=== PATIENT | female | born 1960 | race Caucasian/White ===

== ENCOUNTER → 2016-08-20 | Outpatient (CLI) | payer BC ==
--- NOTE | 2016-08-20 09:31 | RADIOLOGY REPORT (SQ) ---
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 Images reviewed with lung, soft tissue and bone windows. Reconstructed coronal and sagittal MPR images reviewed. All images stored on PACS. All CT scanners at this facility use dose modulation, iterative reconstruction, and/or weight based d osing when appropriate to reduce radiation dose to as low as reasonably achievable (ALARA). [facility]: Dose Right [facility]: CareDose [facility]: Dose Right [facility]: Teradose 4D [facility]: [employer] CONTRAST TYPE AND DOSE: 80mL Isovue 370- low osmolar. RENAL FUNCTION: Creatinine 0.6 RADIATION DOSE: 7.49 mGy. LIMITATIONS: None. FINDINGS: LUNGS AND PLEURA: Old right thoracotomy. Bandlike scarring in the right lower lobe down t o the right posterior costophrenic sulcus. This is similar compared to previous exams. Lungs are otherwise unremarkable. No pleural effusion. No pneumothorax. No acute infiltrates. HILAR AND MEDIASTINAL STRUCTURES: No identified masses or abnormal nodes. HEART AND VASCULAR STRUCTURES: No aneurysm or dissection. No central pulmonary emboli. No pericardi al effusion. HARDWARE: None in the chest. UPPER ABDOMEN: No significant findings. Limited exam. THYROID AND OTHER SOFT TISSUES: No masses. No adenopathy. BONES: No significant finding. OTHER: No other significant finding. IMPRESSION: No change in right lower lobe bandlike scarring adjacent to lung parenchyma shane in t he right posterior costophrenic sulcus TECHNICAL DOCUMENTATION: JOB ID: [id number] Quality ID # [id number]: Final reports with documentation of one or more dose reduction techniques (e.g., Au tomated exposure control, adjustment of the mA and/or kV according to patient size, use of iterative reconstruction technique) 2010 [employer]- All Rights Reserved
== END ==
LOC: RAD 07:55
PROVIDERS: ATTEND Specialist
DX: D14.31 Benign neoplasm of right bronchus and lung (principal)
CPT/HCPCS: 71260; 82565

== ENCOUNTER → 2016-09-01 | Outpatient (CLI) | payer BC ==
--- NOTE | 2016-09-01 18:42 | RADIOLOGY REPORT (SQ) ---
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 TECHNIQUE: Dynamic and static maxwell-scale images acquired of the thyroid gland. Selected additional c olor/power Doppler images recorded. All images stored to PACS. LIMITATIONS: None. FINDINGS: RIGHT LOBE: Enlarged, 57 mm. Inhomogeneous, nodular echotexture. 14 x 10 x 10 mm slightl y hyperechoic, hypervascular nodule in the upper pole. LEFT LOBE: Normal size, 36 mm. Inhomogeneous echotexture. No cystic or solid masses. ISTHMUS: Prominent, 8.7 mm. Inhomogeneous echotexture. No cystic or solid masses. OTHER: No other significant finding. IMPRESSION: The thyroid gland is inhomogeneous as described. 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 TECHNICAL DOCUMENTATION: JOB ID: [id number] [employer]- All Rights Reserved
== END ==
LOC: RAD 16:26
PROVIDERS: ATTEND Specialist
DX: E04.1 Nontoxic single thyroid nodule (principal)
CPT/HCPCS: 76536

== ENCOUNTER → 2017-06-04 | Outpatient (CLI) | payer BC ==
--- NOTE | 2017-06-04 16:30 | RADIOLOGY REPORT (SQ) ---
EXAM DESCRIPTION: CT CHEST WITH COMPLETED DATE/TIME: 06/04/2017 3:25 pm REASON FOR STUDY: BENIGN NEOPLASM OF R BRONCHUS AND LUNG D14.31 BENIGN NEOPLASM OF RIGHT BRONCHUS A ND LUNG COMPARISON: 08/20/2016 and 02/25/2016. TECHNIQUE: CT scan of the chest performed using helical scanning technique with dynamic intravenous contrast injection. Images reviewed with lung, soft tissue and bone windows. Reconstructed coronal and sagittal MPR images reviewed. All images stored on PACS. All CT scanners at this facility use dose modulation, iterative reconstruction, and/or weight based d osing when appropriate to reduce radiation dose to as low as reasonably achievable (ALARA). [facility]: Dose Right [facility]: CareDose [facility]: Dose Right [facility]: Teradose 4D [facility]: [employer] CONTRAST TYPE AND DOSE: contrast/concentration: Isovue 370.00 mg/ml; Total Contrast Delivered: 80.0 ml; Total Saline Delivered: 55.0 ml RENAL FUNCTION: Creatinine 0.9. RADIATION DOSE: CT Rad equipment meets quality standard of care and radiation dose reduction techniq ues were employed. CTDIvol: 5.7 mGy. DLP: 211 mGy-cm. . LIMITATIONS: None. FINDINGS: LUNGS AND PLEURA: Stable linear and nodular scarring in the right lower lobe as well as po sterior pleural thickening. Remainder of the right lung and left lung otherwise clear. No infiltrat es. No nodules or masses. No pleural effusion. HILAR AND MEDIASTINAL STRUCTURES: No identified masses or abnormal nodes. HEART AND VASCULAR STRUCTURES: No aneurysm or dissection. No central pulmonary emboli. No pericardi al effusion. HARDWARE: None in the chest. UPPER ABDOMEN: No significant findings. Limited exam. THYROID AND OTHER SOFT TISSUES: No masses. No adenopathy. BONES: No significant finding. OTHER: No other significant finding. IMPRESSION: STABLE CT OF THE CHEST WITH IV CONTRAST. CHRONIC SCARRING AND NODULARITY IN THE RIGHT L OWER LOBE AND PLEURAL THICKENING. TECHNICAL DOCUMENTATION: JOB ID: [id number] Quality ID # [id number]: Final reports with documentation of one or more dose reduction techniques (e.g., Au tomated exposure control, adjustment of the mA and/or kV according to patient size, use of iterative reconstruction technique) 2010 [employer]- All Rights Reserved Reading location - IP/workstation name: [email or web address]
== END ==
LOC: RAD 15:04
PROVIDERS: ATTEND Physician Assistant
DX: D14.31 Benign neoplasm of right bronchus and lung (principal)
CPT/HCPCS: 71260; 82565